=== PATIENT | female | born 1980 | race Caucasian/White ===

== ENCOUNTER 2016-10-26 12:37 | Emergency (ER) | payer MEDICAID ==
--- NOTE | 2016-10-26 13:04 | EDM.PDOC ---
ED HPI GENERAL MEDICAL PROBLEM - General Chief Complaint: Behavioral/Psych Stated Complaint: MENTAL HEALTH EVAL Time Seen by Provider: 10/26/16 12:44 - History of Present Illness INITIAL COMMENTS - FREE TEXT/NARRATIVE: HISTORY AND PHYSICAL: History of present illness: Patient 36-year-old white female with an unknown past medical history is brought by law enforcement after they were notified multiple times to find the patient walking in the street outside of the crosswalk when confronted patient was noncooperative stated she had constitutional right to remain silent and also involved her relationship with Pranay on arrival here patient has equally peculiar behavior her communication is brief and similar to what was reported by law enforcement regarding constitutional issues as well as her belief in Pranay as well as her natural dietary habits she is shoeless and somewhat unkempt but" she denies psychiatric history denies drugs or alcohol and otherwise is nonresponsive to questions Review of systems: As per history of present illness and below otherwise all systems reviewed and negative. Past medical history: As per history of present illness and as reviewed below otherwise noncontributory. Surgical history: As per history of present illness and as reviewed below otherwise noncontributory. Social history: No reported history of drug or alcohol abuse. Family history: As per history of present illness and as reviewed below otherwise noncontributory. Physical exam: HEENT: Atraumatic, normocephalic, pupils reactive, negative for conjunctival pallor or scleral icterus, mucous membranes moist, throat clear, neck supple, nontender, trachea midline. Lungs: Clear to auscultation, breath sounds equal bilaterally, chest nontender. Heart: S1S2, regular, negative for clicks, rubs, or JVD. Abdomen: Soft, nondistended, nontender. Negative for masses or hepatosplenomegaly. Negative for costovertebral tenderness. Pelvis: Stable nontender. Genitourinary: Deferred. Rectal: Deferred. Extremities: Atraumatic, negative for cords or calf pain. Neurovascular unremarkable. Neuro: Awake, alert, moves all extremities limited but grossly nonfocal exam Diagnostics: CBC CMP UA urine drug screen EtOH hCG aspirin Tylenol level EKG chest x-ray Therapeutics: None Impression: #1 acute psychosis Definitive disposition and diagnosis as appropriate pending reevaluation and review of above. - Related Data Allergies Allergy/AdvReac Type Severity Reaction Status Date / Time No Known Allergies Allergy Verified 10/26/16 12:49 Home Meds: Home Meds . [No Known Home Meds] 06/29/14 [History] Past Medical History - Past Health History Medical/Surgical History: Denies Medical/Surgical History HEENT History: Reports: None Cardiovascular History: Reports: None Respiratory History: Reports: None Gastrointestinal History: Reports: None Genitourinary History: Reports: None HOG SCALDER History: Reports: Other (See Below) Other OB/BYN History: Right ovarian cyst rupture Musculoskeletal History: Reports: None Neurological History: Reports: None Psychiatric History: Reports: None Endocrine/Metabolic History: Reports: None Hematologic History: Reports: None Immunologic History: Reports: None Oncologic (Cancer) History: Reports: None Dermatologic History: Reports: Other (See Below) Other Dermatologic History: Skin cellulitis/abscess required surgery - Infectious Disease History Infectious Disease History: Reports: None - Past Surgical History Head Surgeries/Procedures: Reports: None HEENT Surgical History: Reports: None Cardiovascular Surgical History: Reports: None Respiratory Surgical History: Reports: None GI Surgical History: Reports: None Female Surgical History: Reports: None Endocrine Surgical History: Reports: None Neurological Surgical History: Reports: None Musculoskeletal Surgical History: Reports: None Dermatological Surgical History: Reports: None Social & Family History - Family History Family Medical History: Noncontributory - Tobacco Use Smoking Status *Q: Current Every Day Smoker Years of Tobacco use: 10 Packs/Tins Daily: 1 Used Tobacco, but Quit: Yes Month Tobacco Last Used: september Second Hand Smoke Exposure: Yes - Alcohol Use Days Per Week of Alcohol Use: 0 - Recreational Drug Use Recreational Drug Use: No ED ROS GENERAL - Review of Systems Review Of Systems: ROS reveals no pertinent complaints other than HPI. ED EXAM, GENERAL - Physical Exam Exam: See Below (See dictation) Course - Vital Signs Last Recorded V/S: Last Vital Signs Temp 36.7 C 10/26/16 12:49 Pulse 100 10/26/16 12:49 Resp 20 10/26/16 12:49 BP 120/71 10/26/16 12:49 Pulse Ox 97 10/26/16 12:49 - Orders/Labs/Meds Orders: Active Orders 24 hr Category Date Time Status EKG Documentation Completion [RC] STAT Care 10/26/16 12:59 Ordered Chest 1V Frontal [CR] Stat Exams 10/26/16 13:00 Ordered ACETAMINOPHEN [CHEM] Stat Lab 10/26/16 12:59 Ordered CBC WITH AUTO DIFF [HEME] Stat Lab 10/26/16 12:59 Ordered COMPREHENSIVE METABOLIC PN,CMP [CHEM] Stat Lab 10/26/16 12:59 Ordered DRUG SCREEN, URINE [URCHEM] Stat Lab 10/26/16 12:59 Uncollected HCG QUALITATIVE,SERUM [CHEM] Stat Lab 10/26/16 13:00 Ordered SALICYLATE [CHEM] Stat Lab 10/26/16 12:59 Ordered UA W/MICROSCOPIC [URIN] Stat Lab 10/26/16 12:59 Uncollected Departure - Departure Time of Disposition: 13:04 Disposition: DC/Tfer to Psych Hosp/Unit [facility] Condition: Good Clinical Impression: Acute psychosis - Discharge Information Forms: ED Department Discharge - My Orders Last 24 Hours: My Active Orders 10/26/16 12:59 EKG Documentation Completion [RC] STAT ACETAMINOPHEN [CHEM] Stat CBC WITH AUTO DIFF [HEME] Stat COMPREHENSIVE METABOLIC PN,CMP [CHEM] Stat DRUG SCREEN, URINE [URCHEM] Stat SALICYLATE [CHEM] Stat UA W/MICROSCOPIC [URIN] Stat 10/26/16 13:00 Chest 1V Frontal [CR] Stat HCG QUALITATIVE,SERUM [CHEM] Stat - Assessment/Plan Last 24 Hours: My Active Orders 10/26/16 12:59 EKG Documentation Completion [RC] STAT ACETAMINOPHEN [CHEM] Stat CBC WITH AUTO DIFF [HEME] Stat COMPREHENSIVE METABOLIC PN,CMP [CHEM] Stat DRUG SCREEN, URINE [URCHEM] Stat SALICYLATE [CHEM] Stat UA W/MICROSCOPIC [URIN] Stat 10/26/16 13:00 Chest 1V Frontal [CR] Stat HCG QUALITATIVE,SERUM [CHEM] Stat
[2016-10-26] MEDS ORDERED: Ziprasidone Mesylate 20 MG in Water For Injection, Sterile 1.2 ML IM ONE (13:15)
[2016-10-26 13:39] LABS: CHLORIDE,CL 105 mmol/L (98-110); SODIUM,NA 137 mmol/L (136-146)
--- NOTE | 2016-10-26 13:46 | CR ---
EXAMINATION: Portable chest radiograph. HISTORY: Shortness of breath. FINDINGS: The trachea is midline. The cardiomediastinal silhouette is within normal limits. No pulmonary infil trates, effusions or pneumothorax. There is a vague 5 cm soft tissue opacity projecting over the reg ion of the left breast. Osseous structures appear unremarkable. IMPRESSION: 1. No acute cardiopulmonary process. 2. Vague 5 cm soft tissue dense opacity projecting over the region of the left breast. This may be e xternal to the patient. Clinical examination may be beneficial.
[2016-10-26 13:56] LABS: ACETAMINOPHEN < 3.0 ug/mL
[2016-10-26 14:02] VITALS: BP 118/71
== END 2016-10-26 13:55 ==
LOC: MW.ED 12:37
DX: F23 Brief psychotic disorder (principal); F17.210 Nicotine dependence, cigarettes, uncomplicated
CPT/HCPCS: 36415; 71010; 80053; 84703; 85025; 93005; 96372; 99285; G0480; J3486; 99284